=== PATIENT | female | born 1960 | race Caucasian/White ===

== ENCOUNTER 2021-03-13 15:30 | Emergency (ER) | payer OTHER, SELFPAY ==
[2021-03-13 15:38] VITALS: BP 134/63; PULSE 80; RESP 16; TEMP 36.6; O2SAT 99; BMI 21.0
[2021-03-13 15:41] VITALS: BP 134/63; PULSE 77; O2SAT 99
--- NOTE | 2021-03-13 15:48 | DI.RAD.S_ITS ---
PROCEDURE: XR CHEST 1V INDICATIONS: chest pain TECHNIQUE: One view of the chest was acquired. COMPARISON: None. FINDINGS: Surgical changes and devices: None. Lungs and pleura: Lungs are clear. No pleural effusions or pneumothorax. Mediastinum: Mediastinal contours appear normal. Heart size is normal. Bones and chest wall: No suspicious bony lesions. Overlying soft tissues appear unremarkable. IMPRESSION: No acute process. Dictated by: Vicky Alanis M.D. on 03/13/2021 at 16:13 Approved by: Vicky Alanis M.D. on 03/13/2021 at 16:13
[2021-03-13 16:00] VITALS: BP 115/58; PULSE 72; RESP 36; O2SAT 100
[2021-03-13 16:14] LABS: Add Manual Diff / Slide Review NO; Basophils Absolute Auto 0 /uL (0-100); Basophils Percent Auto 0.4 % (0-2); Eosinophils Absolute Auto 0 /uL (0-450); Eosinophils Percent Auto 0.1 % (2-4); Hemoglobin 14.5 g/dL (12.0-16.0); Lymphocytes Absolute Auto 2000 /uL (1100-4500); Lymphocytes Percent Auto 23.7 % (25-40); Mean Corpuscular HGB Conc 34.5 % (30-36); Mean Corpuscular Hemoglobin 29.2 PG (26-34); Mean Corpuscular Volume 84.5 fL (80-100); Monocytes Absolute Auto 400 /uL (0-900); Monocytes Percent Auto 4.3 % (3-14); Neutrophils Absolute Auto 6100 /uL (1500-7000); Neutrophils Percent Auto 71.5 % (50-75); Platelet Count 279 X10^3/uL (150-400); Red Blood Cell Count 4.97 X10^6/uL (4.0-5.2); Red Cell Distribution Width 12.9 % (11.6-14.8); White Blood Cell Count 8.6 X10^3/uL (4.5-11.0)
[2021-03-13 16:25] LABS: Alanine Aminotransferase 23 IU/L (<35); Albumin 4.3 g/dL (3.5-5.0); Albumin Globulin Ratio 1.5 (1.0-2.8); Alkaline Phosphatase 85 U/L (38-126); Aspartate Aminotransferase 30 IU/L (14-36); Bilirubin Total 0.5 mg/dL (0.2-1.3); Blood Urea Nitrogen 14 mg/dL (7-17); Calcium 9.4 mg/dL (8.4-10.2); Carbon Dioxide 30 mmol/L (22-32); Chloride 102 mmol/L (98-107); Creatine Kinase 35 U/L (30-135); Estimated Glomerular Filt Rate > 60.0 mL/min (>60); Globulin 2.9 g/dL (1.7-4.1); Glucose 101 mg/dL (80-110); HEMOLYSIS < 15 (0-50); Lipase 141 U/L (23-300); Potassium 4.2 mmol/L (3.4-5.1); Sodium 138 mmol/L (137-145); Total Protein 7.2 g/dL (6.3-8.2)
[2021-03-13 16:30] VITALS: BP 119/60; PULSE 71; RESP 28; O2SAT 98
[2021-03-13 16:37] LABS: Troponin I < 0.012 ng/mL (0.01-0.034)
[2021-03-13 17:00] VITALS: BP 108/58; PULSE 66; RESP 17; O2SAT 99
--- NOTE | 2021-03-13 17:22 | ED_ITS ---
HPI - Chest Pain <Diego Varner PA-C - Last Filed: 03/15/21 11:21> General Chief Complaint: Chest Pain Stated Complaint: lt arm and shoulder pressure Time Seen by Provider: 03/13/21 16:56 Source: patient Mode of arrival: Ambulatory History of Present Illness HPI narrative: 60-year-old female with no reported medical problems presents to the ED with 1 day of left arm and shoulder pressure. Patient states that she s tarted feeling lightheaded and nauseous this morning, after which her arm and shoulder pain started. Patient denies fever, chills, chest pain, shortness of breath, vomiting, abdominal pain, dysuria, syncope. Patient states she is in menopause, stopped exogenous estrogen about 8 months ago. Endorses that she has tingling and aches and pains that come in waves intermittently. Has been seen by her PCP for the same. Related Data Allergies Allergy/AdvReac Type Severity Reaction Status Date / Time No Known Drug Allergies Allergy Verified 03/13/21 15:48 Review of Systems <Diego Varner PA-C - Last Filed: 03/15/21 11:21> Constitutional Constitutional: Denies chills, Denies fatigue, Denies fever(s), Denies frequent falls, Denies lethargy and Denies weakness Eyes Eyes: Denies change in vision, Denies eye discharge, Denies irritation and Denies loss of vision ENT Ears, Nose, Mouth, and Throat: Denies change in voice, Denies dizziness, Denies neck pain, Denies sore throat and Denies throat swelling Cardiovascular Cardiovascular: Denies chest pain, Denies irregular heart rhythm, Denies lightheadedness, Denies palpitations, Denies dyspnea, Denies dyspnea on exertion and Denies orthopnea Respiratory Respiratory: Denies cough, Denies dyspnea, Denies dyspnea on exertion and Denies wheezing Gastrointestinal Gastrointestinal: Denies abdominal pain, Denies change in bowel habits, Denies diarrhea, Reports nausea and Denies vomiting Musculoskeletal Musculoskeletal: Denies neck pain and Denies numbness Comments: Left arm and shoulder pain Integumentary/Breasts Skin/Breast: Denies pruritus, Denies erythema, Denies rash and Denies wounds Neurologic Neurologic: Denies behavioral changes, Denies confusion, Denies dizziness, Denies frequent falls, Denies loss of vision, Denies numbness and Denies weakness Comments: Lightheadedness Psychiatric Psychiatric: Denies anxiety, Denies behavioral changes, Denies confusion, Denies depression, Denies homicidal ideation and Denies suicidal ideation Endocrine Endocrine: Denies fatigue, Denies flushing and Denies palpitations Hematologic/Lymphatic Hematologic/Lymphatic: Denies easy bruising Allergic/Immunologic Allergic/Immunologic: Denies urticaria, Denies throat swelling and Denies wheezing Patient History <Diego Varner PA-C - Last Filed: 03/15/21 11:21> Social History Smoking Status: Never smoker Smoking Status: Never smoker Substance Use Type: does not use Exam <Diego Varner PA-C - Last Filed: 03/15/21 11:21> Initial Vital Signs Initial Vital Signs: Vital Signs Temperature 97.9 F 03/13/21 15:38 Pulse Rate 80 03/13/21 15:38 Respiratory Rate 16 03/13/21 15:38 Blood Pressure 134/63 03/13/21 15:38 Pulse Oximetry 99 03/13/21 15:38 Const General: cooperative HENMT Head: normocephalic and atraumatic Ears: external ears normal and TM's normal bilaterally Nose: external nose normal and No nasal discharge Face and sinus: sinuses nontender, face symmetric, no sinus tenderness and No dry mucous membranes Mouth: oral mucosae normal and moist mucous membranes Teeth and gingiva: dentition normal Throat: tonsils normal and uvula midline Eyes General: appearance normal, both eyes and all related structures Eyelids: eyelids normal Conjunctivae: conjunctivae normal Sclera: sclerae normal Pupils: PERRL EOM: EOM intact bilaterally Neck Neck: normal visual inspection, trachea midline, No lymphadenopathy, No midline deformity and No JVD Lymphatic: No lymphedema Chest Chest: normal inspection of the chest Resp Effort & Inspection: normal respiratory effort, able to speak in complete sentences, no respiratory distress and no use of accessory muscles Auscultation: clear to auscultation bilaterally, no rales, no rhonchi and no wheezes Cardio Rate: regular rate Rhythm: regular rhythm Heart Sounds: no click, no gallops, no murmurs and no rubs Pulses: normal peripheral pulses GI Inspection: non-distended Palpation: soft, no hepatosplenomegaly, No guarding, No pulsatile mass and No tender Auscultation: normal bowel sounds Back/Spine/Pelvis Back: No CVA tenderness Cervical Spine: cervical ROM normal and No pain with cervical ROM Thoracic/Lumbar Spine: thoracic and lumbar spine normal to inspection Skin General: no rashes or lesions noted, No jaundice and No petechiae Neuro General: patient alert, patient oriented x3, gait normal and no focal motor deficits Speech: speech normal Other: Neurologically intact. CN 1 through 12 intact. Gait normal. Negative [id number], rapid alternating movements, pronator drift. PERRLA Extrem General: full ROM, no clubbing, cyanosis or edema, no pedal edema and no calf tenderness Psych Appearance: well kempt Mental Status: mental status grossly normal Attitude: cooperative Thought Content: normal and suicidality Judgment: judgment good <Sherrei Avitia DO - Last Filed: 03/16/21 08:26> Initial Vital Signs Initial Vital Signs: Vital Signs Temperature 97.9 F 03/13/21 15:38 Pulse Rate 80 03/13/21 15:38 Respiratory Rate 16 03/13/21 15:38 Blood Pressure 134/63 03/13/21 15:38 Pulse Oximetry 99 03/13/21 15:38 Course <Diego Varner PA-C - Last Filed: 03/15/21 11:21> Course Course Narrative: Labs within normal limit. First Trop within normal limit. Will repeat trop, reassess. patient declines 2nd troponin, signed out Against Medical Advice. ED return precautions discussed. Orders Ordered: ED Orders 03/13/21 15:48 XR chest 1V Stat EKG-12 Lead Stat 03/13/21 16:00 Complete Blood Count AUTO DIFF Stat Comprehensive Metabolic Panel Stat Lipase Stat Troponin & CK Cardiac Panel Stat Vital Signs Vital signs: Vital Signs - 8 hr 03/13/21 15:38 03/13/21 15:41 03/13/21 16:00 Temperature 97.9 F Pulse Rate 80 77 72 Respiratory Rate 16 36 H Blood Pressure 134/63 134/63 115/58 L Pulse Oximetry 99 99 100 03/13/21 16:30 Temperature Pulse Rate 71 Respiratory Rate 28 H Blood Pressure 119/60 Pulse Oximetry 98 <DO Chema Gonzalez Last Filed: 03/16/21 08:26> Orders Ordered: ED Orders 03/13/21 15:48 XR chest 1V Stat EKG-12 Lead Stat 03/13/21 16:00 Complete Blood Count AUTO DIFF Stat Comprehensive Metabolic Panel Stat Lipase Stat Troponin & CK Cardiac Panel Stat Vital Signs Vital signs: Vital Signs - 8 hr 03/13/21 15:38 03/13/21 15:41 03/13/21 16:00 Temperature 97.9 F Pulse Rate 80 77 72 Respiratory Rate 16 36 H Blood Pressure 134/63 134/63 115/58 L Pulse Oximetry 99 99 100 03/13/21 16:30 Temperature Pulse Rate 71 Respiratory Rate 28 H Blood Pressure 119/60 Pulse Oximetry 98 MDM - Chest Pain <Diego Varner PA-C - Last Filed: 03/15/21 11:21> Medical Records Data Attestation: I reviewed the patient's medical records. Lab Data Attestation: I reviewed the patient's lab results. Lab results narrative: Labs within normal limits. Trop neg. Result diagrams: 03/13/21 16:00 03/13/21 16:00 Labs: Lab Results 03/13/21 03/13/21 Range/Units 16:00 16:00 WBC 8.6 (4.5-11.0) X10^3/uL RBC 4.97 (4.0-5.2) X10^6/uL Hgb 14.5 (12.0-16.0) g/dL Hct 42.0 (36-46) % MCV 84.5 (80-100) fL MCH 29.2 (26-34) PG MCHC 34.5 (30-36) % RDW 12.9 (11.6-14.8) % Plt Count 279 (150-400) X10^3/uL Neut % (Auto) 71.5 (50-75) % Lymph % (Auto) 23.7 L (25-40) % [place] % (Auto) 4.3 (3-14) % Eos % (Auto) 0.1 L (2-4) % Baso % (Auto) 0.4 (0-2) % Neut # (Auto) 6100 (8452-1459) /uL Lymph # (Auto) 2000 (4084-3198) /uL [place] # (Auto) 400 (0-900) /uL Eos # (Auto) 0 (0-450) /uL Baso # (Auto) 0 (0-100) /uL Sodium 138 (137-145) mmol/L Potassium 4.2 (3.4-5.1) mmol/L Chloride 102 (98-107) mmol/L Carbon Dioxide 30 (22-32) mmol/L BUN 14 (7-17) mg/dL Creatinine 0.70 (0.52-1.04) mg/dL Estimated GFR > 60.0 (>60) mL/min BUN/Creatinine Ratio 20.0 (6-22) Glucose 101 (80-110) mg/dL Calcium 9.4 (8.4-10.2) mg/dL Total Bilirubin 0.5 (0.2-1.3) mg/dL AST 30 (14-36) IU/L ALT 23 (<35) IU/L Alkaline Phosphatase 85 (38-126) U/L Total Creatine Kinase 35 (30-135) U/L CK-MB (CK-2) TNP CK-MB (CK-2) Rel Index TNP Troponin I < 0.012 (0.01-0.034) ng/mL Total Protein 7.2 (6.3-8.2) g/dL Albumin 4.3 (3.5-5.0) g/dL Globulin 2.9 (1.7-4.1) g/dL Albumin/Globulin Ratio 1.5 (1.0-2.8) Lipase 141 (23-300) U/L Urine Dip Bedside Urine Glucose Negative Bedside Urine Bilirubin - Negative Bedside Urine Ketone - Negative Urine Specific Gregory 1.010 Bedside Urine Occult Blood - Negative Bedside Urine pH 7.0 Bedside Urine Protein - Negative Bedside Urine Urobilinogen 0.2 Bedside Urine Nitrite - Negative Bedside Urine Leukocytes - Negative Esterase Imaging Data Chest x-ray: Radiologist's Impression: PROCEDURE:? XR CHEST 1V ? INDICATIONS:? chest pain ? TECHNIQUE:? One view of the chest was acquired.? ? COMPARISON:? None. ? FINDINGS:? ? Surgical changes and devices:? None.? ? Lungs and pleura:? Lungs are clear.? No pleural effusions or pneumothorax.? ? Mediastinum:? Mediastinal contours appear normal.? Heart size is normal.? ? Bones and chest wall:? No suspicious bony lesions.? Overlying soft tissues appear unremarkable.? ? IMPRESSION:? No acute process. ? ? Dictated by: Vicky Alanis M.D. on 03/13/2021 at 16:13 ? ? Approved by: Vicky Alanis M.D. on 03/13/2021 at 16:13 ECG Data Attestation: I personally reviewed and interpreted this ECG as follows: Pacemaker model: NSR, no axis deviaton. No ST-T changes MDM Narrative Medical decision making narrative: 60-year-old female with no reported medical problems presents to the ED with 1 day of left arm and shoulder pressure. Concern for ACS versus electrolyte derangement versus musculoskeletal strain/sprain versus radiculopathy. Unlikely CVA, given normal neurological exam. Will order EKG, chest x-ray, troponin, labs. Will reassess. Likely discharge home if negative workup. <Sherrie Avitia DO - Last Filed: 03/16/21 08:26> Lab Data Labs: Lab Results 03/13/21 03/13/21 Range/Units 16:00 16:00 WBC 8.6 (4.5-11.0) X10^3/uL RBC 4.97 (4.0-5.2) X10^6/uL Hgb 14.5 (12.0-16.0) g/dL Hct 42.0 (36-46) % MCV 84.5 (80-100) fL MCH 29.2 (26-34) PG MCHC 34.5 (30-36) % RDW 12.9 (11.6-14.8) % Plt Count 279 (150-400) X10^3/uL Neut % (Auto) 71.5 (50-75) % Lymph % (Auto) 23.7 L (25-40) % [place] % (Auto) 4.3 (3-14) % Eos % (Auto) 0.1 L (2-4) % Baso % (Auto) 0.4 (0-2) % Neut # (Auto) 6100 (5979-9095) /uL Lymph # (Auto) 2000 (3019-5879) /uL [place] # (Auto) 400 (0-900) /uL Eos # (Auto) 0 (0-450) /uL Baso # (Auto) 0 (0-100) /uL Sodium 138 (137-145) mmol/L Potassium 4.2 (3.4-5.1) mmol/L Chloride 102 (98-107) mmol/L Carbon Dioxide 30 (22-32) mmol/L BUN 14 (7-17) mg/dL Creatinine 0.70 (0.52-1.04) mg/dL Estimated GFR > 60.0 (>60) mL/min BUN/Creatinine Ratio 20.0 (6-22) Glucose 101 (80-110) mg/dL Calcium 9.4 (8.4-10.2) mg/dL Total Bilirubin 0.5 (0.2-1.3) mg/dL AST 30 (14-36) IU/L ALT 23 (<35) IU/L Alkaline Phosphatase 85 (38-126) U/L Total Creatine Kinase 35 (30-135) U/L CK-MB (CK-2) TNP CK-MB (CK-2) Rel Index TNP Troponin I < 0.012 (0.01-0.034) ng/mL Total Protein 7.2 (6.3-8.2) g/dL Albumin 4.3 (3.5-5.0) g/dL Globulin 2.9 (1.7-4.1) g/dL Albumin/Globulin Ratio 1.5 (1.0-2.8) Lipase 141 (23-300) U/L Urine Dip Bedside Urine Glucose Negative Bedside Urine Bilirubin - Negative Bedside Urine Ketone - Negative Urine Specific Gregory 1.010 Bedside Urine Occult Blood - Negative Bedside Urine pH 7.0 Bedside Urine Protein - Negative Bedside Urine Urobilinogen 0.2 Bedside Urine Nitrite - Negative Bedside Urine Leukocytes - Negative Esterase ECG Data Interpretation: PETER-normal sinus rhythm rate 75, ID interval 168 QRS [address] changes no T-wave inversions no prior to compare Discharge Plan Departure Patient Disposition: Left Against Medical Advice Clinical Impression: Chest pain Qualifiers: Chest pain type: unspecified Qualified Code(s): R07.9 - Chest pain, unspecified Instructions: DI for Chest Pain Activity Restrictions/Additional Instructions: You are being evaluated for acute coronary syndrome and your arm pain, your workup is still underway, and we recommend you stay for it. You are leaving against medical advise. Return to the emergency department if you experience chest pain, shortness of breath, worsening symptoms. Referrals: Angela Rivera PA-C [Primary Care Provider] - Stand Alone Forms: Against Medical Advice <Sherrie Avitia DO - Last Filed: 03/16/21 08:26> Cosign ED Attending Cosjose davidature Attestation: I was immediately available in the department for consultation. Documentation has been reviewed. I agree with assessment and plan.
[2021-03-13 17:30] VITALS: PULSE 68; RESP 22; O2SAT 97
== END 2021-03-13 18:04 | disposition left against medical advice (07) ==
PROVIDERS: Emergency Medicine; Emergency Provider Student in an Organized Health Care Education/Training Program; PCP Physician Assistant
DX: R07.9 Chest pain, unspecified (principal); R42 Dizziness and giddiness; R11.0 Nausea
CPT/HCPCS: 36415; 71045; 80053; 81003; 82550; 83690; 84484; 85025; 93005; 99283; 99284